=== PATIENT | female | born 1960 | race Caucasian/White ===

== ENCOUNTER → 2023-04-01 10:09 | Outpatient (REF) | payer OTHER, SELFPAY ==
[2023-04-01 12:39] LABS: % Basophils 0.5 % (0-2); % Eosinophils 2.9 % (0-6); % Immature Granulocytes 0.3 % (0-0.5); % Lymphocytes 32.6 % (20.5-51.1); % Monocytes 6.3 % (1.7-9.3); % Neutrophils 57.4 % (42.2-75.2); Absolute Eosinophils 0.2 10^3/uL (0-0.7); Absolute Lymphocytes 1.9 10^3/uL (1.2-3.4); Absolute Monocytes 0.4 10^3/uL (0.1-0.6); Absolute Neutrophils 3.4 10^3/uL (1.4-6.5); Hematocrit 40.4 % (37.0-47.0); Hemoglobin 13.6 g/dL (12.0-16.0); Mean Corp Hgb Conc. 33.7 g/dL (33.0-37.0); Mean Corpuscular Hgb 32.8 pg (27.0-31.0); Mean Corpuscular Volume 97.3 fL (81.0-99.0); Mean Platelet Volume 9.8 fL (7.4-10.4); Nucleated Red Blood Cells % 0 %; Platelet Count 290 10^3/uL (130-400); Red Blood Cell Count 4.15 10^6/uL (4.20-5.40); Red Cell Dist. Width 12.5 % (11.5-14.5); White Blood Cell Count 5.9 10^3/uL (4.8-10.8)
[2023-04-01 12:58] LABS: Blood Urea Nitrogen 14 mg/dl (7-17); Calcium 9.9 mg/dl (8.4-10.2); Carbon Dioxide 30 mmol/L (22-30); Chloride 101 mmol/L (98-107); Glucose 104 mg/dl (70-99); Potassium 4.4 mmol/L (3.5-5.1); Sodium 139 mmol/L (135-145); eGFR > 60.00
== END ==
LOC: HWLAB 10:09
PROVIDERS: ATTENDING PHYSICIAN Orthopaedic Surgery; FAMILY PHYSICIAN Family Medicine
DX: Z01.818 Encounter for other preprocedural examination (principal)
CPT/HCPCS: 36415; 80048; 85025

== ENCOUNTER 2023-04-06 06:33 | Day surgery (SDC) | payer OTHER, SELFPAY ==
[2023-04-06] VITALS (9 sets, daily range): BP systolic 91–141; BP diastolic 58–93; BMI 33.9
[2023-04-06] MEDS: TYLENOL 1000 MG PO (08:59)
[2023-04-06] MEDS: NORMOSOL-R 1000 IV (09:01)
== END 2023-04-06 12:45 | disposition home or self-care (01) ==
LOC: SDS 06:33
PROVIDERS: ATTENDING PHYSICIAN Orthopaedic Surgery
DX: S52.502A Unspecified fracture of the lower end of left radius, initial encounter for closed fracture (principal); W19.XXXA Unspecified fall, initial encounter
CPT/HCPCS: 25607; C1713

== ENCOUNTER → 2023-06-25 06:42 | Outpatient (REF) | payer OTHER, SELFPAY ==
[2023-06-25 09:57] LABS: % Basophils 0.6 % (0-2); % Eosinophils 4.2 % (0-6); % Immature Granulocytes 0.2 % (0-0.5); % Lymphocytes 38.9 % (20.5-51.1); % Monocytes 7.1 % (1.7-9.3); Absolute Eosinophils 0.2 10^3/uL (0-0.7); Absolute Lymphocytes 1.9 10^3/uL (1.2-3.4); Absolute Monocytes 0.3 10^3/uL (0.1-0.6); Absolute Neutrophils 2.3 10^3/uL (1.4-6.5); Hematocrit 40.4 % (37.0-47.0); Hemoglobin 13.3 g/dL (12.0-16.0); Mean Corp Hgb Conc. 32.9 g/dL (33.0-37.0); Mean Corpuscular Hgb 31.9 pg (27.0-31.0); Mean Corpuscular Volume 96.9 fL (81.0-99.0); Mean Platelet Volume 9.4 fL (7.4-10.4); Nucleated Red Blood Cells % 0 %; Platelet Count 288 10^3/uL (130-400); Red Blood Cell Count 4.17 10^6/uL (4.20-5.40); Red Cell Dist. Width 12.4 % (11.5-14.5); White Blood Cell Count 4.8 10^3/uL (4.8-10.8)
[2023-06-25 10:12] LABS: ALT (SGPT) 26 U/L (0-35); AST (SGOT) 31 U/L (14-36); Alkaline Phosphatase 78 U/L (38-126); Blood Urea Nitrogen 18 mg/dl (7-17); Calcium 9.5 mg/dl (8.4-10.2); Carbon Dioxide 31 mmol/L (22-30); Chloride 104 mmol/L (98-107); Glucose 94 mg/dl (70-99); HDL Cholesterol 65 mg/dl; LDL Cholesterol, Calculated 108 mg/dl; Potassium 4.1 mmol/L (3.5-5.1); Sodium 139 mmol/L (135-145); Total Bilirubin 0.4 mg/dl (0.2-1.3); Total Cholesterol 194 mg/dl (50-199); Triglyceride 107 mg/dl (10-149); Very Low Density Lipoprotein 21 mg/dl (0-30); eGFR > 60.00
[2023-06-25 10:31] LABS: Free T4 1.16 ng/dl (0.78-2.19)
[2023-06-25 10:44] LABS: TSH 1.03 uIU/ml (0.47-4.68)
== END ==
LOC: HWWDC 06:42
PROVIDERS: ATTENDING PHYSICIAN Family Medicine
DX: Z12.31 Encounter for screening mammogram for malignant neoplasm of breast (principal); Z01.89 Encounter for other specified special examinations; Z00.00 Encounter for general adult medical examination without abnormal findings; E55.9 Vitamin D deficiency, unspecified
CPT/HCPCS: 36415; 77063; 77067; 80053; 80061; 82306; 84439; 84443; 85025

== ENCOUNTER → 2024-05-09 12:58 | Outpatient (REF) | payer OTHER, SELFPAY | LOC: HWEVLT 12:58 | PROVIDERS: ATTENDING PHYSICIAN Radiology Vascular & Interventional Radiology | DX: I83.893 Varicose veins of bilateral lower extremities with other complications (principal) | CPT/HCPCS: 93970 ==

== ENCOUNTER 2024-08-14 06:18 | Day surgery (SDC) | payer MEDICARE, SELFPAY ==
[2024-07-17 13:47] VITALS: BMI 31.2
[2024-08-14] VITALS (11 sets, daily range): BP systolic 104–171; BP diastolic 57–125; BMI 31.2
--- NOTE | 2024-08-14 07:02 | HP.FOC2 ---
Focused History & Physical
Chief Complaint
HPI:
Chief Complaint: Symptomatic left inguinal hernia
HPI / Indication for Planned Procedure: Patient is a 63-year-old female previously known to myself status post laparoscopic cholecystectomy 10/2022. At that time laparoscopic inspection identified a previously undiagnosed left indirect inguinal
hernia and small right indirect inguinal hernia. She has been following her hernias expectantly but recently developed symptoms in the left inguinal region with an intermittent discomfort and ache. Examination for the presence of a readily
apparent and reducible left inguinal hernia. The right inguinal region remains asymptomatic and not detectable on examination.
Relevant Past Medical History: Negative
Relevant Social History: Negative
Relevant Family History: Negative
Relevant Past Surgical History: Positive for (Hysterectomy, laparoscopic cholecystectomy, left distal radius ORIF, LASEK eye surgery, arthroscopic knee surgery)
Review of Systems
Review of Pertinent Systems: All Systems Negative
Medication
See Medication form for detailed medications: Yes
Medication List (including Herbals & OTC):
Calcium Citrate + D with Mag 1 tab PO DAILY 08/07/24
Probiotic 0.5 mg PO DAILY 08/07/24
Women's Multivitamin Gummies 2 gum PO DAILY 08/07/24
loratadine 10 mg tablet (Allerclear) 10 mg PO DAILY 08/07/24
phendimetrazine tartrate 35 mg tablet 35 mg PO DAILY 08/07/24
phentermine 30 mg capsule 30 mg PO DAILY 08/07/24
Medications Reviewed: Yes
Allergies and Reactions
Patient has Allergies: Yes
Noted Allergies and Reactions:
Allergy/AdvReac Type Severity Reaction Status Date / Time
aspirin Allergy throat Verified 08/07/24 09:48
starts to
close;difficulty
breathing
ibuprofen Allergy similar to Verified 08/07/24 09:48
aspirin
nitrofurantoin (From Allergy high Verified 08/07/24 09:48
Macrobid) fever,rash
Pertinent Physical Exam
All Other Systems: Negative
Head/Neck: Normal
Lungs: Normal
Heart: Normal
Abdomen: Other (Reducible left inguinal hernia)
Extremities: Normal
Neurological: Normal
Diagnosis / Assessment
63-year-old female presenting for scheduled operative correction symptomatic left inguinal hernia; incidental right inguinal hernia which will be following expectantly unless large enough during surgical evaluation to allow for visceral contents to
be protruding into the hernia sac
Plan / Procedure
Robotic assisted laparoscopic repair left inguinal hernia with mesh
Anesthesia/Sedation to be done by Anesthesia Provider: Yes
[2024-08-14] MEDS: TYLENOL 1000 MG PO (12:11)
[2024-08-14] MEDS: NORMOSOL-R/PLASMALYTE-A 1000 IV (12:11)
--- NOTE | 2024-08-14 12:30 | W.SUR.PREOP ---
Pre-Operative Surgical Note
-
I have examined this patient prior to the performance of the scheduled procedure.
The patient's condition is unchanged from the time of the current History and
Physical and the patient is able to undergo the scheduled procedure.
[2024-08-14] MEDS: EMEND 40 MG PO (12:36)
--- NOTE | 2024-08-14 14:59 | W.IMMPOSTOP ---
Addendum entered and electronically signed by Jefferson Rosa MD 08/14/24 15:25:
#[id number]
Original Note:
Surgical Immed Post Op Note
-
Primary Surgeon: Jefferson Rosa MD
Assisting Surgeon: Ericka Harvey PA-C
Pre-op Diagnosis: Left inguinal hernia, possible right
Post-op Diagnosis: Bilateral inguinal hernias; indirect
Procedure Performed: Robotic assisted laparoscopic SATNAM repair of bilateral inguinal hernias with mesh; 3D max large mid weight
Anesthesia Type: GETA +0.25% Marcaine
Specimen / Cultures: None
Estimated Blood Loss: 8 mL
Complications: None immediate
Operative Findings: Left indirect inguinal hernia approximately 2 fingerbreadth defect. Direct and femoral space normal. 3D max large mid weight mesh repair secured to Luis Carlos's ligament with 2-0 Vicryl stitch x 2. Right indirect inguinal hernia
approximately 1-1/2 fingerbreadth defect. Direct and femoral space normal. 3D max large mid weight mesh repair secured to Luis Carlos's ligament with 2-0 Vicryl stitch x 2.
The assistance of Ericka Harvey PA-C was required due to the complexity of the procedure. During the procedure Ericka Harvey PA-C assisted with port placement, robotic instrumentation and suture material exchanges, and closure of the surgical incision
sites. I was present for the entirety of the operative procedure.
== END 2024-08-14 16:49 | disposition home or self-care (01) ==
LOC: SDS 06:18
PROVIDERS: ATTENDING PHYSICIAN Surgery; FAMILY PHYSICIAN Family Medicine
DX: K40.20 Bilateral inguinal hernia, without obstruction or gangrene, not specified as recurrent (principal)
CPT/HCPCS: 49650; 36415; 93005; C1781